=== PATIENT | male | born 1955 | race Caucasian/White ===

== ENCOUNTER 2016-05-20 18:40 | Emergency (ER) | payer MEDICARE ==
[~2016-05-20] VITALS: Ht 172.7 cm; Wt 149.8 kg
[2016-05-20 18:52] VITALS: BP 160/97; PULSE 72; RESP 18; TEMP 98.2; O2SAT 95
== END 2016-05-20 21:07 | disposition left against medical advice (07) ==
LOC: PHED 18:40
DX: R52 Pain, unspecified (principal)
CPT/HCPCS: 99281